=== PATIENT | male | born 1980 | race Caucasian/White ===

== ENCOUNTER 2021-05-15 08:53 | Emergency (ER) | payer MEDICAID, SELFPAY ==
--- NOTE | ~2021-05-15 | XR_ITS ---
EXAMINATION: XR SHOULDER, RIGHT CLINICAL INFORMATION: Right shoulder pain COMPARISON: None TECHNIQUE: AP external rotation, Grashey, scapular Y, and axillary views of the right shoulder. FINDINGS: The bones and soft tissues are normal aside from some minimal sclerosis at the greater tuberosity. A small bone island is present in the glenoid. No fracture. Glenohumeral and acromioclavicular alignment is anatomic with normal joint space. No abnormal soft tissue calcifications. XR/XR shoulder RT min 2V IMPRESSION: Some minimal sclerosis of the glenoid tuberosity which can sometimes be seen with bursitis.
[2021-05-15 09:33] VITALS: BP 115/90; PULSE 55; RESP 16; TEMP 36.1; O2SAT 99; BMI 26.4
--- NOTE | 2021-05-15 10:13 | ED.GENADULT ---
HPI - General Adult General Chief complaint: General Medical Stated complaint: shoulder pain,eye swelling Time Seen by Provider: 05/15/21 09:26 Source: patient Mode of arrival: ambulatory Limitations: language barrier History of Present Illness HPI narrative: 40-year-old Amharic-speaking male with a past medical history of asthma presenting to the ED with complaints of right shoulder pain for the past 3 months worsened the past week. He reports that this started 1 day while he was at work he does a lot a heavy lifting and since then every time he moves his right shoulder he feels like a crepitus noise. 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 He denies any other symptoms related to this including paresthesias. Patient also reports left facial swelling for the past 2 days worse today. Reports at work he always feels like his sinuses are acting up. Although he also has poor dentition and is unsure this is related. Although denies any dental pain. Related Data Previous Rx's Medication Instructions Recorded clindamycin HCl 600 mg PO TID 10 Days #60 cap 05/15/21 lidocaine HCl [Aspercreme 1 appl TOPICAL BID PRN #120 g 05/15/21 (lidocaine HCl)] naproxen 500 mg PO BID PRN #10 tab 05/15/21 oxycodone-acetaminophen [Percocet] 1 tab PO Q6H PRN #10 tab 05/15/21 Allergies Allergy/AdvReac Type Severity Reaction Status Date / Time No Known Allergies Allergy Unverified 08/18/20 19:34 [No Known Allergies*] Review of Systems Review of Systems: Constitutional : Positive left facial swelling, No changes in activity, No lethargy, No recent prior head injury, No agitation, No increased fussiness ENT/Mouth : No Ear Pain, No Nasal discharge/drainage Eyes: No Eye Pain, No Swelling, No Redness, No Foreign Body, No Vision Changes Cardiovascular : No Chest Pain, No SOB Respiratory : No Cough Gastrointestinal : No Nausea, No Vomiting, No abdominal Pain Genitourinary : No Dysuria, No Urinary Frequency, No Urinary Incontinence, No Urgency, No Flank Pain Musculoskeletal : + joint pain, No neck stiffness, No back pain/injury Skin : No lacerations Neuro : No unsteady gait, No Paresthesias, No Loss of Consciousness, No altered mental status, No Headache Yes all other systems are reviewed and are negative [facility] Past Medical History Attestation statement: The following information was validated with the patient. Social History Social History Advance Directives: No Advance Directives Information Provided: No Physical Exam Vital Signs: Vital Signs: Last Vital Signs Temp 97.0 F 05/15/21 09:33 Pulse 55 05/15/21 09:33 Resp 16 05/15/21 09:33 BP 115/90 H 05/15/21 09:33 Pulse Ox 99 05/15/21 09:33 Body Mass Index 26.4 vital signs have been reviewed as normal and appeared to be correct. Blood pressure normal. Heart rate normal. Respiration rate normal. Temperature normal. Oxygen saturation normal. Appearance: Alert. Oriented X3. No acute distress. Head: Normal external exam. Normocephalic. Atraumatic. No Manley signs noted. No raccoon eyes noted Eyes: PERRLA. EOMI. Conjunctiva and sclera normal. Eyelids normal. ENT: EAC normal. TM's Normal. Pharynx normal. Uvula midline. Moist mucous membranes. No trismus noted. No drooling noted. No muffled voice noted. Neck: Normal inspection. Neck supple. FROM. No adenopathy. Thyroid Normal. No meningeal signs. No neck mass noted. CVS: Normal heart rate and rhythm. Heart sound normal. Pulses normal throughout. No murmurs/rales/gallops. Respiratory: No respiratory distress. Painless inspiration. Breath sounds normal. No wheezes/rales/rhonchi noted. Chest nontender. No accessory muscle usage noted or decreased air movement noted. Back: Full range of motion noted. No rashes/lesion/induration/fluctuance or signs of infection noted. Skin: Skin warm and dry. Normal skin color. Normal skin turgor. No rashes/lesions/lacerations noted. Extremities: Patient with tenderness to palpation to right shoulder noted with range of motion otherwise patient has full range of motion no laxity or signs of infection noted. No upper extremity edema noted. No lower extremity edema. Otherwise all other Extremities exhibit normal range of motion and nontender. Neuro: Oriented X 3. No motor deficit. No sensory deficit. Reflexes normal. Normal steady gait. No focal neuro deficits noted. Vascular: + radial pulses/+ 2 distal pedal pulses/+2 dorsalis pedis b/l. Normal cap refill. No cyanosis noted to upper extremity nails and lower extremity toes nails. Course Course Course Narrative: 40-year-old male with right shoulder pain for the past 3 months worse this week. Works heavy lifting at work occurred at work. Also with left facial swelling has poor dentition and suffers from sinuses all he is at work. No signs of peritonsillar abscess/pharyngeal abscess or dental abscess. X-ray reveals some minimal sclerosis of the right glenoid tuberosity which can sometimes seen with bursitis. Therefore will DC home with a sling and symptomatic treatment and antibiotics and instructions return if any new or worsening symptoms. Patient understands agrees with this plan. Medical Decision Making Medical Records Medical records reviewed: Yes I reviewed the patient's medical records. Imaging Data Right shoulder: Attestation: I personally reviewed and interpreted this imaging study as follows: Radiologist's impression: FINDINGS: The bones and soft tissues are normal aside from some minimal sclerosis at the greater tuberosity. A small bone island is present in the glenoid. No fracture. Glenohumeral and acromioclavicular alignment is anatomic with normal joint space. No abnormal soft tissue calcifications. XR/XR shoulder RT min 2V IMPRESSION: Some minimal sclerosis of the glenoid tuberosity which can sometimes be seen with bursitis. Discharge Plan Discharge Clinical Impression: Acute bursitis of right shoulder, Dental caries, Acute bacterial sinusitis, Dental infection Patient Disposition: Home, Self-Care Instructions: Sinusitis (ED), Shoulder Bursitis (ED), Mouth Care (ED), Exercises for Shoulder Abduction and Adduction (ED), Exercises for Shoulder Flexion and Extension (ED) Prescriptions: New clindamycin HCl 300 mg capsule 600 mg PO TID 10 Days Qty: 60 RF: 0 oxycodone-acetaminophen [Percocet] 5-325 mg tablet 1 tab PO Q6H PRN (Reason: pain) Qty: 10 RF: 0 naproxen 500 mg tablet 500 mg PO BID PRN (Reason: pain) Qty: 10 RF: 0 lidocaine HCl [Aspercreme (lidocaine HCl)] 4 % cream 1 appl topical BID PRN (Reason: pain) Qty: 120 RF: 0 Referrals: [facility] [Primary Care Provider] - 2 days InstrumAry MD [Physician] - 2 weeks (If your PCP cannot refer you to therapy for your right shoulder pain you can follow-up with orthopedics although please follow-up with your PCP 1st Si bautista PCP no puede referirlo a terapia para bautista dolor en el hombro derecho, puede hacer un seguimiento con ortopedia, aunque por favor alphonso un seguimiento con bautista PCP 1st) Print Language: Amharic
== END 2021-05-15 10:53 | disposition home or self-care (01) ==
PROVIDERS: Emergency Provider Emergency Medicine Emergency Medical Services
DX: M75.51 Bursitis of right shoulder (principal); J01.90 Acute sinusitis, unspecified; B96.89 Other specified bacterial agents as the cause of diseases classified elsewhere; K02.9 Dental caries, unspecified; K04.7 Periapical abscess without sinus
CPT/HCPCS: 73030; 99283

== ENCOUNTER → 2021-07-07 14:45 | Outpatient (BNVA) | payer MEDICAID, SELFPAY | PROVIDERS: Visit Provider Physician Assistant | DX: M75.51 Bursitis of right shoulder (principal); M75.41 Impingement syndrome of right shoulder | CPT/HCPCS: 20610; 99202; J1040 ==

== ENCOUNTER 2021-09-25 11:00 | Outpatient (RCR) | payer MEDICAID, SELFPAY ==
--- NOTE | 2021-08-21 13:49 | MHC.PT.EP ---
[facility] [place] Office [place] Office [place] Office [address] Paulo Cotton [address] [phone] F: [phone] F: [phone] F: [phone] F: [phone] Physical Therapy Plan of Care Date of Evaluation: Date of Surgery: n/a Diagnosis: Bursitis of R shoulder Assessment: Patient is a 40 year old male presenting to PT with complaints of pain in his R shoulder. Pt reports onset of pain began January 2021 when picking up a bag of ice at work. He presents today with impairments in shoulder strength, posture, shoulder ROM, and pain Pt's baseline physical activities include work, ADLs, reaching, and lifting. Pt expresses jail goal of getting his shoulder better , and is motivated to work towards this in PT. Clinical presentation today is most consistent with signs and sx associated with possible R shoulder impingement and pt will benefit from skilled PT to address the following problems and impairments noted upon evaluation: shoulder strength, pain, ROM, and posture. These problems limit the patient with the following functional activities: reaching, pushing, and lifting. The prescribed treatment plan of care is medically necessary. Co-morbidities of asthma were identified and taken into considerations of plan of care. Pt was educated on HEP, role of PT, prognosis, POC. Frequency and Duration: The patient will be seen 2x week for 4 weeks Short Term Goals: Pt will demonstrate R shoulder ROM equal to L with min to no pain in 2 weeks for improved tolerance to reaching OH. Pt will demonstrate improved pain at rest to <3/10 for improved QOL in 2 weeks. Pt will demonstrate improved postural awareness by sitting with biomechanically correct posture without cues throughout session to improve overall postural function. Pt will demonstrate improved R shoulder strength by 1/3 MMT for improved tolerance to functional mobility in 2 weeks. 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 Pt will demonstrate ability to perform all reaching activities with min to no pain in 4 weeks for improved tolerance to work activities and household duties. Pt will demonstrate ability to perform all lifting and carrying activities with min to no pain in 4 weeks to allow return to PLOF. Treatment Plan: Modalities to reduce pain, spasms and effusion. Manual therapy to restore motion and function. Therapeutic exercise to improve strength and flexibility. Neuromuscular re-education for posture and balance. Therapeutic activities to return to functional activities of daily living. Electronically signed by: Kendy Betancourt PT, DPT, ATC Please sign and return to therapist. Thank you for your referral.
--- NOTE | 2021-10-03 09:48 | MHC.PT.DC ---
[facility] [place] Office [place] Office [place] Office [address] Paulo Cotton [address] [phone] F: [phone] F: [phone] F: [phone] F: [phone] Physical Therapy Discharge Report Diagnosis: Bursitis of R shoulder Date of Surgery: n/a Date of Evaluation: 08/21/21 Date of Discharge: 10/03/21 Treatments to Date: 7 Cancellations to Date: 3 No Shows to Date: 2 Discharge Status: Independent with HEP Visit Non-compliance Discharge Summary: Pt no showed final PT appt. At last attended appt plan was to d/c at following visit to HEP. Pt has not followed up to be rescheduled and therefore will be d/c to HEP at this time. Electronically signed by: Kendy Betancourt, PT, DPT, ATC Please sign and return to therapist. Thank you for your referral.
== END 2021-10-03 09:48 | disposition home or self-care (01) ==
LOC: HO.PT 11:00
PROVIDERS: PCP Internal Medicine; Visit Provider Physician Assistant
DX: M75.51 Bursitis of right shoulder (principal)
CPT/HCPCS: 97110; 97161